=== PATIENT | female | born 1965 | race Caucasian/White ===

== ENCOUNTER → 2016-04-18 | Outpatient (CLI) | payer BC ==
--- NOTE | 2016-04-18 11:24 | CT ---
EXAMINATION TYPE: CT abdomen pelvis wo con DATE OF EXAM: 04/18/2016 11:07 AM COMPARISON: NONE HISTORY: 51-year-old female with history of hematuria and RLQ pain. CT DLP: 232.6 mGycm. Automated exposure control for dose reduction was used. TECHNIQUE: Contiguous axial scanning of the abdomen and pelvis without IV contrast. Coronal and sagit lynnette reconstructions performed. FINDINGS: Heart is normal size without pericardial effusion. Lung bases are clear without pleural effusion. There is an indeterminate 3.5 cm hypodense lesion within segment 6 of the inferior right liver lobe. Cholecystectomy clips are present. Noncontrast appearance of the adrenal glands, spleen with an inferior splenule, and pancreas show no gross abnormality. A couple punctate 2 mm nonobstructive calculi mid and lower pole right kidney. There is mild right-si ded pelvocaliectasis and mild hydroureter with a 4 mm calculus at the pelvic inlet, axial image 97. Small fatty umbilical hernia. No mesenteric or retroperitoneal lymphadenopathy. No dilated small bowel, free fluid, or free air. Normal appendix. There is moderate stool within the colon without pericolonic inflammatory change. Uterus appears surgically absent. However, there is a 5.4 cm low-density lesion in the right adnexa w ith small amount of cul-de-sac free fluid. Left ovary is not clearly seen. Phleboliths low in the pel vis. Bladder is urine distended. Bones: There is L5 hemisacralization with degenerative changes in the lower lumbar spine. Mild anteri or wedging with superior endplate Schmorl's node of T11 has a chronic appearance. IMPRESSION: 1. A 4 MM CALCULUS IN THE MID TO LOWER RIGHT URETER AT THE LEVEL OF THE PELVIC INLET WITH MILD OBSTRU CTIVE UROPATHY. 2. PUNCTATE 2 MM NONOBSTRUCTIVE CALCULI IN THE RIGHT KIDNEY. 3. INDETERMINATE 3.5 CM RIGHT HEPATIC LOBE LESION. THIS CAN BE FURTHER CHARACTERIZED WITH LIVER MRI O R CT. 4. THERE APPEARS TO BE A 5.4 CM RIGHT ADNEXAL MASS. PELVIC ULTRASOUND RECOMMENDED TO FURTHER CHARACTE RIZE. SMALL AMOUNT OF PELVIC FREE FLUID. 5. MILD ANTERIOR WEDGING OF T11, LIKELY REMOTE COMPRESSION INJURY.
== END | disposition home or self-care (01) ==
LOC: RADCTMAIN 10:52
PROVIDERS: ATTEND Urology
DX: N20.2 Calculus of kidney with calculus of ureter (principal)
CPT/HCPCS: 74176

== ENCOUNTER → 2016-05-01 | Outpatient (CLI) | payer BC ==
--- NOTE | 2016-05-01 14:47 | US ---
EXAMINATION TYPE: US pelvis complete transvag DATE OF EXAM: 05/01/2016 9:38 AM COMPARISON: CT abdomen and pelvis April 18, 2016 CLINICAL HISTORY: US. Partial hysterectomy 2006 - uterus and left ovary per patient. Right adnexal ma ss visualized on CT. Recent abnormal CT. TECHNIQUE: Transvaginal (TV) and Transabdominal (TA) pelvic ultrasound. Date of LMP: unknown EXAM MEASUREMENTS: Uterus: surgically absent Endometrial Stripe: surgically absent Right Ovary: 5.7 x 2.4 x 3.0cm Left Ovary: surgically absent FINDINGS: TECHNOLOGIST IMPRESSION: 1. Uterus: surgically absent vaginal cuff = 0.8cm 2. Endometrium: surgically absent 3. Right Ovary: cystic area with septation = 4.4 x 2.0 x 2.7cm 4. Left Ovary: Surgically absent 5. Bilateral Adnexa: wnl Uterus and left ovary are surgically absent. No free fluid is seen in pelvic cul-de-sac. In the right adnexa there is elongated well-circumscribed anechoic lesion measuring 4.4 x 2.0 x 2.7 c m that has thin septation. A rind of ovarian tissue is felt present. No suspicious nodularity or vasc ularity is present. IMPRESSION: A 4.4 cm thin septated cystic lesion right ovary/adnexa is confirmed. This is abnormal fi nding in postmenopausal female. Neoplasm though most certainly benign based on ultrasound characteris tics cannot be excluded. Consider at minimum annual imaging follow-up. Would consider gynecology onco logy evaluation for possible tumor marker/lab correlation.
== END | disposition home or self-care (01) ==
LOC: RADUSWWP 09:13
PROVIDERS: ATTEND Urology
DX: N85.8 Other specified noninflammatory disorders of uterus (principal)
CPT/HCPCS: 76830; 76856

== ENCOUNTER → 2020-06-05 | Outpatient (CLI) | payer BC ==
[2020-06-05 13:12] VITALS: BP 129/85; PULSE 96; RESP 18; TEMP 98.7
--- NOTE | 2020-06-05 13:23 | P.CONS ---
History of Present Illness - Reason for Consult Consult date: 06/05/20 - Chief Complaint Neck and left arm pain - History of Present Illness This is a 55-year-old lady with history of neck pain with radiation to the left arm down to the left elbow on occasionally to the left hand with occasional numbness and tingling in the middle fingers of the left hand. The patient had fracture of C2 and she had to have posterior cervical fusion. She did receive 3 epidural steroid injection on the cervical spine in 2019 which gave her at least one year of pain relief as she states. She takes only ibuprofen for her pain. The pain is constant and there are no alleviating factors. Her pain gets worse with the prolonged activities. She denies any weakness in the upper or lower extremities or any bowel or bladder dysfunction. Past Medical History Past Medical History: GERD/Reflux, Thyroid Disorder Additional Past Medical History / Comment(s): pinched nerve in neck, past hx ulcer, hx fx c-2 and t-ll History of Any Multi-Drug Resistant Organisms: None Reported Past Surgical History: Cholecystectomy, Hysterectomy, Orthopedic Surgery Additional Past Surgical History / Comment(s): cervical fusion(wire in neck) Past Anesthesia/Blood Transfusion Reactions: No Reported Reaction Past Psychological History: No Psychological Hx Reported Smoking Status: Never smoker Past Alcohol Use History: Occasional Past Drug Use History: None Reported - Past Family History Mother Family Medical History: No Reported History Medications and Allergies Home Medications Medication Instructions Recorded Confirmed Type Acetaminophen [Tylenol Extra 1,000 mg PO DIRECTED PRN 06/01/20 06/01/20 History Strength] Ibuprofen [Motrin] 800 mg PO DAILY PRN 06/01/20 06/01/20 History Levothyroxine Sodium [Synthroid] 75 mcg PO DAILY 06/01/20 06/01/20 History Allergies Allergy/AdvReac Type Severity Reaction Status Date / Time ciprofloxacin [From Cipro] Allergy Swelling Verified 06/01/20 15:32 of feet and ankles, fatguie, feet black and blue Penicillins Allergy Rash/Hives Verified 06/01/20 15:32 Physical Exam Vitals: Vital Signs Temp Pulse Resp BP Pulse Ox 06/05/20 13:09 98.7 F 96 18 129/85 98 - EENT Eyes: PERRLA - Neurologic Neuro exam of the upper extremities showed normal and symmetrical muscle strengt h, absent triceps reflex bilaterally, normal biceps reflex bilaterally and brachioradialis reflex. Mild tenderness in the cervical paravertebral musculature on the left side. Mildly decreased range of motion of the cervical spine especially to left rotation. Neurologic: CNII-XII intact - Psychiatric Psychiatric: appropriate affect, intact judgment & insight Results Results: The cervical spine MRI which was done in April 2020 shows what level spondylosis with bulging discs and disc osteophyte complexes greatest at C6-C7 level with severe left foraminal narrowing at the C6 7 level. Assessment and Plan Plan: This is a 55-year-old lady with a history of upper cervical fusion to do C2 fracture and chronic neck pain with radiation to the left upper extremity due to neural foraminal stenosis at the C 67 level. The patient had good response to c ervical epidural steroid injection previously. We will plan on doing cervical epidural steroid injection at the C7-T1 level in the left paramedian approach. I asked the patient to hold ibuprofen for at least 24 hours before the procedure but she can use Tylenol for her pain if she needs to. I thank you for the referral
== END | disposition home or self-care (01) ==
LOC: PNWHC3 12:57
PROVIDERS: ATTEND Anesthesiology
DX: M48.02 Spinal stenosis, cervical region (principal); M54.2 Cervicalgia; G89.29 Other chronic pain; Z79.1 Long term (current) use of non-steroidal anti-inflammatories (NSAID); Z79.890 Hormone replacement therapy; Z88.1 Allergy status to other antibiotic agents; Z88.0 Allergy status to penicillin; Z98.1 Arthrodesis status
CPT/HCPCS: 99211

== ENCOUNTER 2020-07-06 06:51 | Day surgery (SDC) | payer BC ==
[2020-07-04 16:32] VITALS: BMI 26.5
[~2020-07-06 06:51] MED LIST: LACTATED RINGERS 1,000 ML IV SCH
[2020-07-06 07:17] VITALS: TEMP 97.8
[2020-07-06] MEDS ORDERED: LACTATED RINGERS 1,000 ML IV ONE (07:28)
[2020-07-06] MEDS ORDERED: LIDOCAINE 1% (10MG/ML) FOR IV START INTRADERMA ONE (07:29)
[2020-07-06] MEDS ORDERED: fentaNYL (PF) 50 MCG/ML 2 ML AMP ONE (08:00)
[2020-07-06] MEDS ORDERED: MIDAZOLAM 2 MG/2 ML VIAL ONE (08:00)
[2020-07-06] MEDS ORDERED: DEXAMETHASONE SOD PHOSPHATE 10 MG/ML 1 ML VIAL ONE (08:00)
[2020-07-06] MEDS ORDERED: IOPAMIDOL M200 10 ML VIAL ONE (08:00)
--- NOTE | 2020-07-06 08:13 | P.PCN ---
Date of Procedure: 07/06/20 Procedure(s) Performed: . PROCEDURE 1. Cervical epidural steroid injection under fluoroscopic guidance, C7-T1 (fluoroscopy images available in the radiology department ) 2. Cervical epidurogram. PREOPERATIVE DIAGNOSIS: 1- Cervical foraminal stenosis 2-cervical spondylosis with cervical Facet arthropathy without myelopathy POSTOPERATIVE DIAGNOSIS: : 1- Cervical foraminal stenosis , 2-cervical spondylosis with cervical Facet arthropathy without myelopathy ANESTHESIA: Local anesthesia with lidocaine 1 % , and moderate sedation, with Versed 2 mg and Fentanyl 50 mcg. EBL 0 PROCEDURE INDICATION: The patient with neck pain and radiculitis unresponsive to conservative treatment consents for procedure. PROCEDURE DESCRIPTION / TECHNIQUE: The patient was seen and identified in the preoperative area. Risks, benefits, complications, including but not limited to infections ,bleeding , allergic reactions to the medications ,and not complete pain releife, and alternatives were discussed with the patient, the patient agreed to proceed with the procedure and signed the consent. Patient was taken to the OR and time out was completed. The patient was placed in the prone position on the procedure table. A pillow was placed under the patients chest to increase the cervical interlaminar space. The cervical area was prepped and draped in the usual sterile fashion. Vital signs were closely monitored during the procedure. Conscious sedation was used during the procedure to decrease patients anxiety. Using anterior-posterior fluoroscopy, the C7-T1 interlaminar space was identified and the skin over this site was marked and then infiltrated with 1% lidocaine subcutaneously. Subsequently, a 20-gauge 3-1/2-inch Tuohy epidural needle was inserted and advanced toward the epidural space by means of the ``hanging-drop technique and guided by AP and lateral fluoroscopy. The correct needle position in the epidural space was verified with the injection of 2 mL of the water soluble contrast dye Isovue-200 and observing an excellent epidurogram with the epidural spread of the dye, after negative aspiration for blood and CSF and in the absence of paresthesias. Again after negative aspiration, mixture containing 20 mg Dexamethasone and 2 ml of preservative- free normal saline injected and a washout of epidurogram was seen. Needle was withdrawn intact, skin was cleansed, and bandages were applied. Complications= none. Disposition= patient was placed in supine position and transferred to the recovery room area in stable condition and there was no evidence of upper or lower extremity motor or sensory deficit after the procedure patient was discharged from recovery room after discharge criteria met and home discharge instructions was given by the staff and patient will follow with the pain clinic in 2-4 weeks
[2020-07-06] MEDS ORDERED: IV FLUID CONTINUATION 1,000 ML IV ONE (08:17)
[2020-07-06 08:19] VITALS: RESP 16
[2020-07-06 08:33] VITALS: BP 111/75; PULSE 73
--- NOTE | 2020-07-06 13:27 | FL ---
EXAMINATION TYPE: FL guided pain mgmt statistic DATE OF EXAM: 07/06/2020 HISTORY: Fluoroscopy time 3 seconds of fluoroscopy provided. IMPRESSION: 1. Fluoroscopy time.
== END 2020-07-06 08:48 | disposition home or self-care (01) ==
LOC: ORPAIN 06:51
PROVIDERS: ATTEND Specialist
DX: M47.22 Other spondylosis with radiculopathy, cervical region (principal); Z88.1 Allergy status to other antibiotic agents; Z88.0 Allergy status to penicillin; Z90.710 Acquired absence of both cervix and uterus
CPT/HCPCS: 62321; J2250; J1100; J3010; Q9966

== ENCOUNTER 2020-08-03 07:24 | Day surgery (SDC) | payer BC ==
[2020-07-31 16:10] VITALS: BMI 26.9
[2020-08-03] MEDS ORDERED: LACTATED RINGERS 1,000 ML IV SCH (07:32)
[2020-08-03 07:37] VITALS: TEMP 97.8
[2020-08-03] MEDS ORDERED: LACTATED RINGERS 1,000 ML IV ONE (07:37)
[2020-08-03] MEDS ORDERED: LIDOCAINE 1% (10MG/ML) FOR IV START INTRADERMA ONE (07:43)
[2020-08-03] MEDS ORDERED: IOPAMIDOL M200 10 ML VIAL ONE (08:05)
[2020-08-03] MEDS ORDERED: MIDAZOLAM 2 MG/2 ML VIAL ONE (08:05)
[2020-08-03] MEDS ORDERED: DEXAMETHASONE SOD PHOSPHATE 10 MG/ML 1 ML VIAL ONE (08:05)
[2020-08-03] MEDS ORDERED: fentaNYL (PF) 50 MCG/ML 2 ML AMP ONE (08:05)
--- NOTE | 2020-08-03 08:17 | P.PCN ---
Date of Procedure: 08/03/20 Procedure(s) Performed: PROCEDURE 1. Cervical epidural steroid injection under fluoroscopic guidance, C7-T1 (fluoroscopy images available in the radiology department ) 2. Cervical epidurogram. PREOPERATIVE DIAGNOSIS: 1- Cervical foraminal stenosis 2-cervical spondylosis with cervical Facet arthropathy without myelopathy POSTOPERATIVE DIAGNOSIS: : 1- Cervical foraminal stenosis , 2-cervical spondylosis with cervical Facet arthropathy without myelopathy ANESTHESIA: Local anesthesia with lidocaine 1 % , and moderate sedation, with Versed 2 mg and Fentanyl 50 mcg. EBL 0 PROCEDURE INDICATION: The patient with neck pain and radiculitis unresponsive to conservative treatment consents for procedure. PROCEDURE DESCRIPTION / TECHNIQUE: The patient was seen and identified in the preoperative area. Risks, benefits, complications, including but not limited to infections ,bleeding , allergic reactions to the medications ,and not complete pain releife, and alternatives were discussed with the patient, the patient agreed to proceed with the procedure and signed the consent. Patient was taken to the OR and time out was completed. The patient was placed in the prone position on the procedure table. A pillow was placed under the patients chest to increase the cervical interlaminar space. The cervical area was prepped and draped in the usual sterile fashion. Vital signs were closely monitored during the procedure. Conscious sedation was used during the procedure to decrease patients anxiety. Using anterior-posterior fluoroscopy, the C7-T1 interlaminar space was identified and the skin over this site was marked and then infiltrated with 1% lidocaine subcutaneously. Subsequently, a 20-gauge 3-1/2-inch Tuohy epidural needle was inserted and advanced toward the epidural space by means of the ``hanging-drop technique and guided by AP and lateral fluoroscopy. The correct needle position in the epidural space was verified with the injection of 2 mL of the water soluble contrast dye Isovue-200 and observing an excellent epidurogram with the epidural spread of the dye, after negative aspiration for blood and CSF and in the absence of paresthesias. Again after negative aspiration, mixture containing 20 mg Dexamethasone and 2 ml of preservative- free normal saline injected and a washout of epidurogram was seen. Needle was withdrawn intact, skin was cleansed, and bandages were applied. Complications= none. Disposition= patient was placed in supine position and transferred to the recovery room area in stable condition and there was no evidence of upper or lower extremity motor or sensory deficit after the procedure patient was discharged from recovery room after discharge criteria met and home discharge instructions was given by the staff and patient will follow with the pain clinic in 2-4 weeks
[2020-08-03] MEDS ORDERED: IV FLUID CONTINUATION 700 ML IV ONE (08:20)
[2020-08-03 08:24] VITALS: RESP 16
[2020-08-03 08:47] VITALS: BP 118/75; PULSE 75
--- NOTE | 2020-08-03 08:51 | FL ---
Fluoroscopy HISTORY: Pain 2 seconds fluoroscopy time supplied to the referring clinician. 1 intraoperative C-arm images docume nt the procedure. See dictated report from anesthesia.
== END 2020-08-03 08:52 | disposition home or self-care (01) ==
LOC: ORPAIN 07:24
PROVIDERS: ATTEND Specialist
DX: M48.02 Spinal stenosis, cervical region (principal); M47.812 Spondylosis without myelopathy or radiculopathy, cervical region
CPT/HCPCS: 62321; J2250; J1100; J3010; Q9966

== ENCOUNTER → 2020-08-23 | Outpatient (CLI) | payer BC ==
[2020-08-23 14:08] VITALS: BP 137/73; PULSE 86; RESP 16; TEMP 97.6
--- NOTE | 2020-08-23 14:25 | P.PN ---
Subjective Progress Note Date: 08/23/20 Jemma is a 55-year-old female presenting today for follow-up after having 2 cervical epidural steroid injections secondary to left cervical radiculopathy. She reports that the radicular symptoms are almost completely gone. She is very pleased with the results. She has some mild complaints of mid back pain just below the bra line. The pain is usually worse with activity, and worse with slouching of her posture. There is no weakness noted. At that level she's had a history of a compression fracture which healed on its own. Review of Systems: Denies any New chest pain, short of breath, Nausea/vomitting, abdominal pain, bowel or bladder incontinence, or any overt new neurologic symptoms in the upper or lower extremities outside of what is noted in the HPI Objective - Vital Signs Vital signs: Vital Signs Temp 97.6 F 08/23/20 14:06 Pulse 86 08/23/20 14:06 Resp 16 08/23/20 14:06 BP 137/73 08/23/20 14:06 Pulse Ox 99 08/23/20 14:06 - Exam PHYSICAL EXAM: Constitutional: Awake and alert no distress Cardiovascular exam: Regular rate, no lower extremity edema, palpable pulses bilaterally Respiratory exam: No audible wheezing, no accessory muscle usage Abdominal exam: Soft nontender Muscular skeletal exam: - Cervical spine: Nontender to palpation bilaterally. Vertical scar is well- healed in the midline. Range of motion is not limited. Spurling is negative bilateral. Facet loading is negative bilaterally - Thoracic spine: Nontender to palpation. Slight increase in kyphosis, rounded shoulders forward flexed body position. Extension and flexion do not cause pain. - Lumbar spine: Preserved lumbar lordosis. No changes in skin. Nontender palpation bilateral. Patient has full range of motion in flexion and extension as well as lateral sidebending. Straight leg raise is negative Neuro exam: Normal sensation bilateral upper and lower extremities. Deep tendon reflexes are 2+ bilaterally. Smith's is negative Psychiatric exam: Cooperative, good insight Assessment and Plan Assessment: #1 cervical radiculopathy #2 thoracic spondylosis without myelopathy Plan: At this point we will send the patient home to follow up as needed. I discussed a posture life trainer to help correct her posture. I've also explained that since her pain is minimal at the thoracic spine which should avoid doing anything. If the pain is intense any point we can schedule her for bilateral thoracic medial branch blocks at the T10 11 and T11 12 I have spent 26 minutes on patient care today. The time was used to review the medical records including relevant urine studies and Prescription history (MAPs), review of the available imaging, evaluation and examination of the patie nt, coordination of care with the medical staff and if applicable referring physicians, as well as creation of the medical record. Maps were checked and appropriate
== END ==
LOC: PNWHC3 13:56
PROVIDERS: ATTEND Hospitalist
DX: M47.814 Spondylosis without myelopathy or radiculopathy, thoracic region (principal); M54.12 Radiculopathy, cervical region
CPT/HCPCS: 99211

== ENCOUNTER → 2022-05-09 | Outpatient (CLI) | payer BC, OTHER ==
[2022-05-09 11:28] VITALS: BP 119/78; PULSE 63; RESP 18; TEMP 98.3
--- NOTE | 2022-05-09 14:58 | P.PAINPG ---
PQRS Measure Charge Sheet Comment: A 57 yr old female w daughter at side with a history of severe and chronic neck pain x 6 mo secondary to cervical DDD and spondylosis with facet arthropathy without myelopathy presents today for evaluation s/p MARYBETH C7-T1 in Jul 2020. Pt experienced 95% pain relief x 18 mo s/p procedure. Pain level is provoked at 6 /10 in intensity, constant, localized in the L lower cervical spine, sharp, shooting in character w shooting towards the LUE. Pain is provoked by over activity. Pain is alleviated with heat, ice, meds (Ibu, Tyl), inactivity and rest. Pt hasn't had PT since 2019 where she did 2 wks until it provoked too much pain and was discontinued by her PTs. Interventional pain procedures completed include CESIs C7-T1 x2 Patient is currently on Tyl, Ibu Patient denies any side effects of the medication(s), denies excessive drowsiness or sleepiness, denies suicidal ideation and reports that the current pain medication is helping to control the pain and improve activities of daily living. Patient denies any motor or sensory deficits. Patient denies any fever or night sweats, denies any change in the bowel movements or urination. Physical Examination: -Constitutional: Cooperative. Not in acute distress . - Neurologic: Cranial nerve II to XII intact. No focal neurological deficits. - Psychatric: Alert & oriented x 3. Matching mood & appropriate affect. Judgment and insight intact. - Musculoskeletal: Cervical spine: Muscle bulk/ tone/ strength in the bilateral upper extremities normal Vertebral body tenderness to palpation over C6 Spurling test positive Distraction test positive Facet loading test positive Thoracic spine Muscle bulk / tone/ strength in the bilateral paraspinal muscles normal Vertebral body tender to palpation over Facet loading test positive Lumbar spine: Motor bulk/ tone/ strength lower extremities , thigh and legs : 5/5 Deep tendon reflexes : Normal Knee Jerk. Normal Ankle Jerk . Vertebral body tenderness to palpation over Lumbar Facet Loading Test positive Straight Leg Raise: positive at 30 degrees right side/ left side Gaenslen's Test positive Sacral spine : Severe tenderness over the Sacroiliac joint: right side / left side Range of motion: Flexion of the lumbar spine <60 degrees Range of motion: Extension of the lumbar spine <20 degrees Gaenslen's Test positive Dylan test: positive right side / left side Thigh Thrust Test Sacral Thrust Test Assessment and plan: Chronic neck pain secondary to cervical DDD, spondylosis with facet arthropathy without myelopathy Recommendation of MARYBETH C6-C7 #1. May need a series of injections, up to 3 within a 6 mo period, for optimal pain relief. Risks, benefits of procedure discussed and pt verbalized understanding. Admits to anticoagulant use or medical history of diabetes. Protocol fro discontinuation/ continuation of medications regla procedure discussed. All patient questions answered I have spent less than 30 minutes on patient care today. Dr Evans was available by phone for the evaluation of this patient. The time was used to review the medical records including relevant urine studies and Prescription history (MAPs), review of the available imaging, evaluation and examination of the patient, coordination of care with the medical staff and if applicable referring physicians, as well as creation of the medical record PQRS Narrative: Hx Alcohol Use (MH) Yes Home Medications: Ambulatory Orders Acetaminophen [Tylenol Extra Strength] 1,000 mg PO DIRECTED PRN 06/01/20 Ibuprofen [Motrin] 800 mg PO DAILY PRN 06/01/20 Levothyroxine Sodium [Synthroid] 75 mcg PO DAILY 06/01/20 Controlled Substance Measures - Controlled Substance Measures Is patient prescribed a controlled substance at discharge?: No
== END ==
LOC: PNWHC3 10:31
PROVIDERS: ATTEND Specialist
DX: M47.812 Spondylosis without myelopathy or radiculopathy, cervical region (principal); M50.30 Other cervical disc degeneration, unspecified cervical region; G89.29 Other chronic pain; Z88.0 Allergy status to penicillin; Z88.1 Allergy status to other antibiotic agents
CPT/HCPCS: 99211

== ENCOUNTER → 2022-07-01 | Outpatient (CLI) | payer OTHER ==
[2022-07-01 14:39] VITALS: BP 147/87; PULSE 72; RESP 18; TEMP 97.2
--- NOTE | 2022-07-01 17:00 | P.PAINPG ---
PQRS Measure Charge Sheet Comment: A 57 yr old female with a history of severe and chronic neck pain since 2013 secondary to cervical DDD and spondylosis with facet arthropathy without myelopathy presents today for evaluation s/p MARYBETH C6-C7 #1. Pt states she experienced 50% x 5 wks s/p procedure. Pain level is provoked at 8 /10 in intensity, constant, localized in the base of the cervical spine, sharp in character w shooting towards the LUE. Pain is provoked by lifting. Pain is alleviated with PT 1 1/2 yrs ago, massages as needed, heat, ice, medications (Tramadol, Ibu), lay supine, home stretching regimen, hot showers and rest. Interventional pain procedures completed include C6-C7 x1, C7-T1 x2 Patient is currently on Tramadol, Ibu Patient denies any side effects of the medication(s), denies excessive drowsiness or sleepiness, denies suicidal ideation and reports that the current pain medication is helping to control the pain and improve activities of daily living. Patient denies any motor or sensory deficits. Patient denies any fever or night sweats, denies any change in the bowel movements or urination. Physical Examination: -Constitutional: Cooperative. Not in acute distress . - Neurologic: Cranial nerve II to XII intact. No focal neurological deficits. - Psychatric: Alert & oriented x 3. Matching mood & appropriate affect. Judgment and insight intact. - Musculoskeletal: Cervical spine: Muscle bulk/ tone/ strength in the bilateral upper extremities normal Vertebral body tenderness to palpation over C7 Spurling test positive Distraction test positive Facet loading test positive TTP Thoracic spine Muscle bulk / tone/ strength in the bilateral paraspinal muscles normal Vertebral body tender to palpation over Facet loading test positive TTP Lumbar spine: Motor bulk/ tone/ strength lower extremities , thigh and legs : 5/5 Deep tendon reflexes : Normal Knee Jerk. Normal Ankle Jerk . Vertebral body tenderness to palpation over Lumbar Facet Loading Test positive Straight Leg Raise: positive at 30 degrees right side/ left side Gaenslen's Test positive Sacral spine : Severe tenderness over the Sacroiliac joint: right side / left side Range of motion: Flexion of the lumbar spine <60 degrees Range of motion: Extension of the lumbar spine <20 degrees Gaenslen's Test positive R / L Dylan test: positive right side / left side Thigh Thrust Test positive R / L Sacral Thrust Test positive R/ L Assessment and plan: Chronic neck pain secondary to cervical DDD, spondylosis with facet arthropathy without myelopathy Recommendation of MARYBETH C6-C7 #2. May need a series of injections for optimal pain relief. Risks, benefits of procedure discussed and pt verbalized understanding. Admits to anticoagulant use or medical history of diabetes. Protocol for discontinuation/ continuation of medications regla procedure discussed. All questions answered. I have spent less than 30 minutes on patient care today. Dr Evans was available by phone for the evaluation of this patient. The time was used to review the medical records including relevant urine studies and Prescription history (MAPs), review of the available imaging, evaluation and examination of the patient, coordination of care with the medical staff and if applicable referring physicians, as well as creation of the medical record PQRS Narrative: Hx Alcohol Use (MH) Yes Home Medications: Ambulatory Orders Acetaminophen [Tylenol Extra Strength] 1,000 mg PO DIRECTED PRN 06/01/20 Ibuprofen [Motrin] 800 mg PO DAILY PRN 06/01/20 Levothyroxine Sodium [Synthroid] 75 mcg PO DAILY 06/01/20 Controlled Substance Measures - Controlled Substance Measures Is patient prescribed a controlled substance at discharge?: No
== END ==
LOC: PNWHC3 13:37
PROVIDERS: ATTEND Specialist
DX: M50.30 Other cervical disc degeneration, unspecified cervical region (principal); M47.812 Spondylosis without myelopathy or radiculopathy, cervical region; G89.29 Other chronic pain; Z88.0 Allergy status to penicillin; Z88.1 Allergy status to other antibiotic agents
CPT/HCPCS: 99211

== ENCOUNTER 2022-08-01 07:50 | Day surgery (SDC) | payer OTHER ==
[2022-07-29 16:01] VITALS: BMI 23.6
[2022-08-01] MEDS ORDERED: LIDOCAINE 1% (10MG/ML) FOR IV START INTRADERMA PRN (08:12)
[2022-08-01] MEDS ORDERED: LACTATED RINGERS 1,000 ML IV SCH (08:12)
[2022-08-01 08:33] VITALS: TEMP 96.7
[2022-08-01] MEDS ORDERED: DEXAMETHASONE SOD PHOSPHATE 10 MG/ML 1 ML VIAL ONE (08:59)
[2022-08-01] MEDS ORDERED: IOPAMIDOL M200 10 ML VIAL ONE (08:59)
[2022-08-01] MEDS ORDERED: fentaNYL (PF) 50 MCG/ML 2 ML AMP ONE (08:59)
[2022-08-01] MEDS ORDERED: MIDAZOLAM 2 MG/2 ML VIAL ONE (08:59)
--- NOTE | 2022-08-01 09:10 | P.PCN ---
Date of Procedure: 08/01/22 Procedure(s) Performed: PROCEDURE 1. Cervical epidural steroid injection under fluoroscopic guidance, C6-7 (fluoroscopy images available in the radiology department ) 2. Cervical epidurogram. PREOPERATIVE DIAGNOSIS: 1- Cervical foraminal stenosis 2-cervical spondylosis with cervical Facet arthropathy without myelopathy . 3-cervical radiculopathy POSTOPERATIVE DIAGNOSIS: : 1- Cervical foraminal stenosis , 2-cervical spondylosis with cervical Facet arthropathy without myelopathy. 3-cervical radiculopathy ANESTHESIA: Local anesthesia with lidocaine 1 % , and moderate sedation, with Versed 2 mg and Fentanyl 100 mcg. Sedation start at 0901, end at 0907 EBL 0 PROCEDURE INDICATION: The patient with neck pain and radiculitis unresponsive to conservative treatment consents for procedure. PROCEDURE DESCRIPTION / TECHNIQUE: The patient was seen and identified in the preoperative area. Risks, benefits, complications, including but not limited to infections ,bleeding , allergic reactions to the medications ,and not complete pain releife, and alternatives were discussed with the patient, the patient agreed to proceed with the procedure and signed the consent. Patient was taken to the OR and time out was completed. The patient was placed in the prone position on the procedure table. A pillow was placed under the patients chest to increase the cervical interlaminar space. The cervical area was prepped and draped in the usual sterile fashion. Vital signs were closely monitored during the procedure. Conscious sedation was used during the procedure to decrease patients anxiety. Using anterior-posterior fluoroscopy, the C6-7 interlaminar space was identified and the skin over this site was marked and then infiltrated with 1% lidocaine subcutaneously. Subsequently, a 20-gauge 3-1/2-inch Tuohy epidural needle was inserted and advanced toward the epidural space by means of the ``hanging-drop technique and guided by AP and lateral fluoroscopy. The correct needle position in the epidural space was verified with the injection of 2 mL of the water soluble contrast dye Isovue-300 and observing an excellent epidurogram with the epidural spread of the dye, after negative aspiration for blood and CSF and in the absence of paresthesias. Again after negative aspiration, mixture containing 20 mg Dexamethasone and 2 ml of preservative-free normal saline injected and a washout of epidurogram was seen. Needle was withdrawn intact, skin was cleansed, and bandages were applied. Complications= none. Disposition= patient was placed in supine position and transferred to the recovery room area in stable condition and there was no evidence of upper or lower extremity motor or sensory deficit after the procedure patient was discharged from recovery room after discharge criteria met and home discharge instructions was given by the staff and patient will follow with the pain clinic in 2-4 weeks
[2022-08-01] MEDS ORDERED: IV FLUID CONTINUATION 1,000 ML IV ONE ×2 (09:15)
[2022-08-01 09:37] VITALS: BP 113/80; PULSE 67; RESP 16
--- NOTE | 2022-08-01 10:08 | FL ---
Intraoperative/procedural fluoroscopic services were provided for cervical epidural steroid injection . Total fluoroscopy time is 2 seconds with a total of 1 submitted image to PACS. Total DAP [id number]. P maged see the operative note for further details.
== END 2022-08-01 08:49 | disposition home or self-care (01) ==
LOC: ORPAIN 07:50
PROVIDERS: ATTEND Specialist
DX: M47.22 Other spondylosis with radiculopathy, cervical region (principal); M48.02 Spinal stenosis, cervical region; Z88.0 Allergy status to penicillin; Z88.1 Allergy status to other antibiotic agents
CPT/HCPCS: 62321; J2250; J1100; J3010; Q9966

== ENCOUNTER → 2022-08-22 | Outpatient (CLI) | payer OTHER ==
[2022-08-22 14:44] VITALS: BP 114/79; PULSE 76; RESP 18; TEMP 98
--- NOTE | 2022-08-22 14:44 | P.PAINPG ---
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 Pt states she experienced 80% pain relief x 3 wks s/p procedure. Pain level is provoked at 10 /10 in intensity, constant, localized in the cervical spine, dull in character w shooting towards the L superior/ middle aspect of the trapezius. Pain is provoked by lifting. Pain is alleviated with PT years ago, massage therapy x 3 sessions in 2021, ice, medications, topical, repositioning and rest. Interventional pain procedures completed include MARYBETH C6-7 Patient is currently on Tyl, Ibu Patient denies any side effects of the medication(s), denies excessive drowsiness or sleepiness, denies suicidal ideation and reports that the current pain medication is helping to control the pain and improve activities of daily living. Patient denies any motor or sensory deficits. Patient denies any fever or night sweats, denies any change in the bowel movements or urination. Physical Examination: -Constitutional: Cooperative. Not in acute distress . - Neurologic: Cranial nerve II to XII intact. No focal neurological deficits. - Psychatric: Alert & oriented x 3. Matching mood & appropriate affect. Judgment and insight intact. - Musculoskeletal: Cervical spine: Muscle bulk/ tone/ strength in the bilateral upper extremities normal Vertebral body tenderness to palpation over Spurling test positive Distraction test positive Facet loading test positive TTP Thoracic spine +L TTP and palpable spasms & trigger points over C7-T2 par aspinal muscles Muscle bulk / tone/ strength in the bilateral paraspinal muscles normal Vertebral body tender to palpation over Facet loading test positive TTP Lumbar spine: Motor bulk/ tone/ strength lower extremities , thigh and legs : 5/5 Deep tendon reflexes : Normal Knee Jerk. Normal Ankle Jerk . Vertebral body tenderness to palpation over Lumbar Facet Loading Test positive Straight Leg Raise: positive at 30 degrees right side/ left side Gaenslen's Test positive Sacral spine : Severe tenderness over the Sacroiliac joint: right side / left side Range of motion: Flexion of the lumbar spine <60 degrees Range of motion: Extension of the lumbar spine <20 degrees Gaenslen's Test positive R / L Dylan test: positive right side / left side Thigh Thrust Test positive R / L Sacral Thrust Test positive R/ L Assessment and plan: Chronic neck pain secondary to cervical DDD, spondylosis with facet arthropathy without myelopathy Recommendation of TPIs of C6-T3. May need additional injections for optimal pain relief. Risks, benefits of procedure discussed and pt verbalized understanding. Admits to anticoagulant use or medical history of diabetes. Protocol for discontinuation/ continuation of medications regla procedure discussed. All questions answered. I have spent less than 30 minutes on patient care today. Dr Evans was available by phone for the evaluation of this patient. The time was used to review the medical records including relevant urine studies and Prescription history (MAPs), review of the available imaging, evaluation and examination of the patient, coordination of care with the medical staff and if applicable referring physicians, as well as creation of the medical record PQRS Narrative: Hx Alcohol Use (MH) Yes Home Medications: Ambulatory Orders Acetaminophen [Tylenol Extra Strength] 1,000 mg PO DIRECTED PRN 06/01/20 Ibuprofen [Motrin] 800 mg PO DAILY PRN 06/01/20 Levothyroxine Sodium [Synthroid] 75 mcg PO DAILY 06/01/20 Controlled Substance Measures - Controlled Substance Measures Is patient prescribed a controlled substance at discharge?: No
== END ==
LOC: PNWHC3 13:27
PROVIDERS: ATTEND Specialist
DX: M50.13 Cervical disc disorder with radiculopathy, cervicothoracic region (principal); M47.23 Other spondylosis with radiculopathy, cervicothoracic region; Z88.0 Allergy status to penicillin; Z88.1 Allergy status to other antibiotic agents
CPT/HCPCS: 99211

== ENCOUNTER → 2022-09-05 | Day surgery (SDC) | payer OTHER ==
[2022-09-03 15:03] VITALS: BMI 24.1
[~2022-09-05] MED LIST changes: +IV FLUID CONTINUATION 1,000 ML IV ONE; +LIDOCAINE 1% (10MG/ML) FOR IV START INTRADERMA PRN; +MIDAZOLAM 2 MG/2 ML VIAL ONE; +ROPIVACAINE 5 MG/ML 20 ML AMPULE ONE; +fentaNYL (PF) 50 MCG/ML 2 ML AMP ONE; +methylPREDNISolone ACETATE 40 MG/ML 1 ML VIAL ONE
[2022-09-05 08:36] VITALS: TEMP 97.9
--- NOTE | 2022-09-05 09:03 | P.PCN ---
Date of Procedure: 09/05/22 Procedure(s) Performed: Procedure= trigger point injections left side cervical and thoracic paraspinal muscles C6 to T3 , total of 6 trigger point injected Preoperative diagnosis= 1-myofascial pain syndrome cervical paraspinal muscles 2-cervical degenerative disc disease 3-cervical facet arthropathy Postoperative diagnosis=Same as preop Diagnosis . Complication = none Condition= stable Anesthesia= moderate sedation with Versed 2 mg. and fentanyl 50 g Sedation started at 0852, end at 0858 Indication for the procedure= patient complaining of severe neck pain , examination was positive for multiple trigger point in the left side cervical paraspinal muscles , and patient diagnosed with myofascial pain syndrome and is here to have trigger point injections Description of the procedure= procedure risk and benefits discussed with the patient, including but not limited, risk of infection and bleeding, and ALLERGIC reaction to the medication and not complete pain relief and patient agreed with the preceding patient taken to the operating room, placed in sitting position or standard monitors applied to the patient then after induction of anesthesia back prepped with chlorhexidine 3 times , then under sterile technique each of the trigger point that was marked in the preop holding area 6 trigger point on the left side cervical paraspinal muscles , each one of them injected with the 2 mL of the mixture of ropivacaine 0.5% 12 ML mixed with 40 mg of Depo-Medrol and 2 mL of the mixture injected at each trigger point after negative aspiration, using 25-gauge needle, injection done after negative aspiration under was no paresthesia during the injection patient tolerated the procedure well without any complications and he will follow up in the pain clinic in a few weeks
[2022-09-05 09:11] VITALS: RESP 16
[2022-09-05 09:38] VITALS: BP 111/72; PULSE 60
== END ==
LOC: ORPAIN 08:08
PROVIDERS: ATTEND Specialist
DX: M79.18 Myalgia, other site (principal); M50.33 Other cervical disc degeneration, cervicothoracic region; M47.812 Spondylosis without myelopathy or radiculopathy, cervical region; Z90.710 Acquired absence of both cervix and uterus
CPT/HCPCS: 20553; J2250; J1030; J3010; J2795

== ENCOUNTER → 2022-10-03 | Outpatient (CLI) | payer OTHER ==
[2022-10-03 11:34] VITALS: BP 128/72; PULSE 63; RESP 15; TEMP 97.6
--- NOTE | 2022-10-03 15:02 | P.PAINPG ---
PQRS Measure Charge Sheet Comment: A 57 yr old female with a history of severe and chronic mid back pain secondary to thoracic DDD and spondylosis with facet arthropathy without myelopathy presents today for evaluation s/p L TPIs C6-T3. Pt states she experienced 95 % pain relief x 4 wks s/p procedure. Pain level is provoked at 1 /10 in intensity, constant, localized in the thoracic spine, dull in character w/o shooting pain. Pain is provoked by lifting. Pain is alleviated with injections, medication, PT in 2020, massage in 2020, repositioning and rest. Interventional pain procedures completed include L TPIs C6-T3 Patient is currently on Ibu Patient denies any side effects of the medication(s), denies excessive drowsiness or sleepiness, denies suicidal ideation and reports that the current pain medication is helping to control the pain and improve activities of daily living. Patient denies any motor or sensory deficits. Patient denies any fever or night sweats, denies any change in the bowel movements or urination. Physical Examination: -Constitutional: Cooperative. Not in acute distress . - Neurologic: Cranial nerve II to XII intact. No focal neurological deficits. - Psychatric: Alert & oriented x 3. Matching mood & appropriate affect. Judgment and insight intact. - Musculoskeletal: Cervical spine: Muscle bulk/ tone/ strength in the bilateral upper extremities normal Vertebral body tenderness to palpation over Spurling test positive Distraction test positive Facet loading test positive TTP Thoracic spine Muscle bulk / tone/ strength in the bilateral paraspinal muscles normal Vertebral body tender to palpation over Facet loading test positive TTP Lumbar spine: Motor bulk/ tone/ strength lower extremities , thigh and legs : 5/5 Deep tendon reflexes : Normal Knee Jerk. Normal Ankle Jerk . Vertebral body tenderness to palpation over Lumbar Facet Loading Test positive Straight Leg Raise: positive at 30 degrees right side/ left side Gaenslen's Test positive Sacral spine : Severe tenderness over the Sacroiliac joint: right side / left side Range of motion: Flexion of the lumbar spine <60 degrees Range of motion: Extension of the lumbar spine <20 degrees Gaenslen's Test positive right side / left side Dylan test: positive right side / left side Thigh Thrust Test positive right side / left side Sacral Thrust Test positive right side / left side Assessment and plan: Chronic mid back pain secondary to thoracic DDD, spondylosis with facet arthropathy without myelopathy Pt tolerated procedure well. She will manage residual pain on her own and may return to clinic as needed. All questions answered. I have spent less than 30 minutes on patient care today. Dr Evans was available by phone for the evaluation of this patient. The time was used to review the medical records including relevant urine studies and Prescription history (MAPs), review of the available imaging, evaluation and examination of the patient, coordination of care with the medical staff and if applicable referring physicians, as well as creation of the medical record PQRS Narrative: Hx Alcohol Use (MH) Yes Home Medications: Ambulatory Orders Acetaminophen [Tylenol Extra Strength] 1,000 mg PO DIRECTED PRN 06/01/20 Ibuprofen [Motrin] 800 mg PO DAILY PRN 06/01/20 Levothyroxine Sodium [Synthroid] 75 mcg PO DAILY 06/01/20 methocarbamoL [Robaxin] 500 mg PO QID PRN 30 Days #90 tab 08/22/22 Controlled Substance Measures - Controlled Substance Measures Is patient prescribed a controlled substance at discharge?: No
== END ==
LOC: PNWHC3 11:15
PROVIDERS: ATTEND Specialist
DX: M51.34 Other intervertebral disc degeneration, thoracic region (principal); M47.814 Spondylosis without myelopathy or radiculopathy, thoracic region; G89.29 Other chronic pain; Z88.0 Allergy status to penicillin; Z88.1 Allergy status to other antibiotic agents
CPT/HCPCS: 99211

== ENCOUNTER → 2024-05-12 | Outpatient (CLI) | payer OTHER ==
[2024-05-12 11:04] VITALS: BP 117/77; PULSE 86; RESP 16; TEMP 97.1
--- NOTE | 2024-05-12 15:46 | P.PAINPG ---
PQRS Measure Charge Sheet Comment: A 59 yr old female with a history of severe and chronic cervicothoracic pain secondary to radiculopathy, spondylosis with facet arthropathy without myelopathy presents today for evaluation. Pain level is provoked at 6 /10 in intensity, constant, localized in the L cervicothoracic spine, dull in character without shooting pain. Pain is provoked by lifting. Pain is alleviated with injections, medication, PT in 2020, massage in 2020, repositioning and rest. Interventional pain procedures completed include L TPIs C6-T3 x1 Patient is currently on Ibu Patient denies any side effects of the medication(s), denies excessive drowsiness or sleepiness, denies suicidal ideation and reports that the current pain medication is helping to control the pain and improve activities of daily living. Patient denies any motor or sensory deficits. Patient denies any fever or night sweats, denies any change in the bowel movements or urination. Physical Examination: -Constitutional: Cooperative. Not in acute distress . - Neurologic: Cranial nerve II to XII intact. No focal neurological deficits. - Psychatric: Alert & oriented x 3. Matching mood & appropriate affect. Judgment and insight intact. - Musculoskeletal: Cervical spine: Muscle bulk/ tone/ strength in the bilateral upper extremities normal Vertebral body tenderness to palpation over Spurling test positive Distraction test positive Facet loading test positive TTP Thoracic spine Muscle bulk / tone/ strength in the bilateral paraspinal muscles normal Vertebral body tender to palpation over Taut bands w twitch response over L C6-T3 Facet loading test positive TTP Lumbar spine: Motor bulk/ tone/ strength lower extremities , thigh and legs : 5/5 Deep tendon reflexes : Normal Knee Jerk. Normal Ankle Jerk . Vertebral body tenderness to palpation over Lumbar Facet Loading Test positive Straight Leg Raise: positive at 30 degrees right side/ left side Gaenslen's Test positive Sacral spine : Severe tenderness over the Sacroiliac joint: right side / left side Range of motion: Flexion of the lumbar spine <60 degrees Range of motion: Extension of the lumbar spine <20 degrees Gaenslen's Test positive right side / left side Dylan test: positive right side / left side Thigh Thrust Test positive right side / left side Sacral Thrust Test positive right side / left side Assessment and plan: Chronic mid back pain secondary to radiculopathy, spondylosis with facet arthropathy without myelopathy Recommendation of L TPIs C6-T3 #2. Risks, benefits of procedure discussed and pt verbalized understanding. All questions answered. I have spent less than 30 minutes on patient care today. Dr Evans was available by phone for the evaluation of this patient. The time was used to review the medical records including relevant urine studies and Prescription history (MAPs), review of the available imaging, evaluation and examination of the patient, coordination of care with the medical staff and if applicable referring physicians, as well as creation of the medical record - Pain Location Left Lower Neck Non-Pharmacological Interventions: Heat, Ice, Inactivity, Massage, Physical Therapy, Position/Reposition, Sitting Pharmacological Interventions: Epidural, PRN Medication, Topical Medication PQRS Narrative: Hx Alcohol Use (MH) Yes Home Medications: Ambulatory Orders Acetaminophen [Tylenol Extra Strength] 1,000 mg PO DIRECTED PRN 06/01/20 Ibuprofen [Motrin] 800 mg PO DAILY PRN 06/01/20 Levothyroxine Sodium [Synthroid] 75 mcg PO DAILY 06/01/20 methocarbamoL [Robaxin] 500 mg PO QID PRN 30 Days #90 tab 08/22/22 Controlled Substance Measures - Controlled Substance Measures Is patient prescribed a controlled substance at discharge?: No
== END ==
LOC: PNWHC3 10:44
PROVIDERS: ATTEND Specialist
DX: M47.23 Other spondylosis with radiculopathy, cervicothoracic region (principal); Z88.0 Allergy status to penicillin; Z88.1 Allergy status to other antibiotic agents
CPT/HCPCS: 99211

== ENCOUNTER → 2024-06-14 | Outpatient (CLI) | payer OTHER ==
[2024-06-14 14:51] VITALS: BP 122/89; PULSE 63; RESP 16; TEMP 97.1
--- NOTE | 2024-06-14 15:43 | P.PAINPG ---
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 Pt states she experienced 80 % pain relief x 2 wks s/p procedure. Pain level is provoked at 2-5 /10 in intensity, constant, localized in the L cervicothoracic spine, dull in character without shooting pain. Pain is provoked by lifting. Pain is alleviated with injections, medication, PT in 2020, massage in 2020, repositioning and rest. Interventional pain procedures completed include L TPIs C6-T3 x2 Patient is currently on Ibu Patient denies any side effects of the medication(s), denies excessive drowsiness or sleepiness, denies suicidal ideation and reports that the current pain medication is helping to control the pain and improve activities of daily living. Patient denies any motor or sensory deficits. Patient denies any fever or night sweats, denies any change in the bowel movements or urination. Physical Examination: -Constitutional: Cooperative. Not in acute distress . - Neurologic: Cranial nerve II to XII intact. No focal neurological deficits. - Psychatric: Alert & oriented x 3. Matching mood & appropriate affect. Judgment and insight intact. - Musculoskeletal: Cervical spine: Muscle bulk/ tone/ strength in the bilateral upper extremities normal Vertebral body tenderness to palpation over Spurling test positive Distraction test positive Facet loading test positive TTP Thoracic spine Muscle bulk / tone/ strength in the bilateral paraspinal muscles normal Vertebral body tender to palpation over Taut bands w twitch response over L C6-T3 Facet loading test positive TTP Lumbar spine: Motor bulk/ tone/ strength lower extremities , thigh and legs : 5/5 Deep tendon reflexes : Normal Knee Jerk. Normal Ankle Jerk . Vertebral body tenderness to palpation over Lumbar Facet Loading Test positive Straight Leg Raise: positive at 30 degrees right side/ left side Gaenslen's Test positive Sacral spine : Severe tenderness over the Sacroiliac joint: right side / left side Range of motion: Flexion of the lumbar spine <60 degrees Range of motion: Extension of the lumbar spine <20 degrees Gaenslen's Test positive right side / left side Dylan test: positive right side / left side Thigh Thrust Test positive right side / left side Sacral Thrust Test positive right side / left side Assessment and plan: Chronic mid back pain secondary to radiculopathy, spondylosis with facet arthropathy without myelopathy Will manage residual pain and may RTC on an as needed basis. All questions answered. I have spent less than 30 minutes on patient care today. Dr Evans was available by phone for the evaluation of this patient. The time was used to review the medical records including relevant urine studies and Prescription history (MAPs), review of the available imaging, evaluation and examination of the patient, coordination of care with the medical staff and if applicable referring physicians, as well as creation of the medical record PQRS Narrative: Hx Alcohol Use (MH) Yes Home Medications: Ambulatory Orders Acetaminophen [Tylenol Extra Strength] 1,000 mg PO DIRECTED PRN 06/01/20 Ibuprofen [Motrin] 800 mg PO DAILY PRN 06/01/20 Levothyroxine Sodium [Synthroid] 75 mcg PO DAILY 06/01/20 Controlled Substance Measures - Controlled Substance Measures Is patient prescribed a controlled substance at discharge?: No
== END ==
LOC: PNWHC3 14:20
PROVIDERS: ATTEND Specialist
DX: M47.26 Other spondylosis with radiculopathy, lumbar region (principal); G89.29 Other chronic pain; Z88.0 Allergy status to penicillin; Z88.1 Allergy status to other antibiotic agents
CPT/HCPCS: 99211